=== PATIENT | female | born 1960 | race Two or more races ===

== ENCOUNTER 2017-11-25 12:50 | Emergency (ER) | payer OTHER ==
[2017-11-25] MEDS: ACETAMINOPHEN 325 MG TAB PO (15:03)
[2017-11-25] MEDS: ONDANSETRON (ODT) 4 MG TAB ODT (15:04)
[2017-11-25] MEDS: LIDOCAINE 1% (MDV) 20 ML INJ SC (15:04)
== END 2017-11-25 15:29 | disposition home or self-care (01) ==
LOC: FTE 12:50
DX: L02.412 Cutaneous abscess of left axilla (principal); R11.10 Vomiting, unspecified; R19.7 Diarrhea, unspecified
CPT/HCPCS: 10060; 99284-25

== ENCOUNTER 2017-12-28 10:14 | Day surgery (SDC) | payer OTHER ==
[~2017-12-28 10:14] MED LIST: ACETAMINOPHEN 1000 MG/100 ML IVPB; CEFAZOLIN 1 GM INJ; DEXAMETHASONE 4 MG/ML 1 ML INJ; METOCLOPRAMIDE 10 MG INJ; ONDANSETRON 4 MG INJ; SUGAMMADEX SODIUM 200 MG/2 ML VIAL IV; metroNIDAZOLE 500 MG/100 ML NS IVPB
[2017-12-28] MEDS ORDERED: FENTAnyl 50 MCG/ML VIAL ×2 (10:28→13:55)
[2017-12-28] MEDS ORDERED: MIDAZOLAM 1 MG/ML 2 ML INJ (10:28)
[2017-12-28] MEDS: CEFAZOLIN 2 GM/50 ML (PMX) 50 ML IVPB (11:30)
[2017-12-28] MEDS ORDERED: LACTATED RINGER'S 1,000 ML IV* (11:30)
[2017-12-28] MEDS: Metronidazole 500 MG in NS 100 ML IVPB (11:30)
[2017-12-28] MEDS ORDERED: ROCURONIUM 50 MG INJ (12:33)
[2017-12-28] MEDS ORDERED: PROPOFOL 20 ML (12:33)
[2017-12-28] MEDS ORDERED: LIDOCAINE 100 MG SYRINGE (12:33)
[2017-12-28] MEDS ORDERED: SUCCINYLCHOLINE CHLORIDE 100 MG/5 ML SYG IV (12:33)
[2017-12-28] MEDS: BUPIVACAINE 0.5% (SDV) 30 ML INJ (13:05)
[2017-12-28] MEDS: LIDOCAINE 1%/EPI 30 ML INJ (13:06)
[2017-12-28] MEDS ORDERED: METOCLOPRAMIDE 10 MG INJ (13:55)
[2017-12-28] MEDS: FENTAnyl 50 MCG/ML VIAL IV (13:57)
[2017-12-28] MEDS: METOCLOPRAMIDE 10 MG INJ IV (13:57)
[2017-12-28] MEDS ORDERED: HYDROmorphONE (0.2 MG/ML) 10ML SYG IV ×2 (14:00)
[2017-12-28] MEDS ORDERED: DIPHENHYDRAMINE 50 MG INJ IV (14:00)
[2017-12-28] MEDS ORDERED: MEPERIDINE 25 MG INJ IV (14:00)
[2017-12-28] MEDS ORDERED: KETOROLAC 30 MG INJ IV (14:00)
[2017-12-28] MEDS ORDERED: hydrALAzine 20 MG INJ IV (14:00)
[2017-12-28] MEDS ORDERED: ONDANSETRON 4 MG INJ IV (14:00)
[2017-12-28] MEDS ORDERED: FENTAnyl 50 MCG/ML VIAL IV (14:00)
[2017-12-28] MEDS ORDERED: LABETALOL HCL 20MG INJ IV (14:00)
== END 2017-12-28 15:45 | disposition home or self-care (01) ==
LOC: SDS 10:14
DX: K64.2 Third degree hemorrhoids (principal); I10 Essential (primary) hypertension; E78.5 Hyperlipidemia, unspecified
CPT/HCPCS: 46255; 88304